=== PATIENT | male | born 1935 | race Caucasian/White ===

== ENCOUNTER 2020-03-16 14:56 | Inpatient (IN) ==
[2020-03-16 16:02] LABS: Basophils # 0.1 K/mcL (0.0-0.2); Basophils % 0.9 %; Eosinophils # 0.4 K/mcL (0.0-0.6); Eosinophils % 3.9 %; Hematocrit 30.2 % (37.5-50.1); Hemoglobin 10.3 g/dL (12.9-16.9); Immature Granulocytes % 0.3 % (0-4); Lymphocytes # 1.4 K/mcL (0.6-4.6); Lymphocytes % 15.3 %; Mean Corpuscular HGB Conc 34.1 g/dL (31.6-35.5); Mean Corpuscular Hemoglobin 31.2 pg (28.0-33.3); Mean Corpuscular Volume 91.5 fL (83.0-100.0); Mean Platelet Volume 10.1 fL (9.4-12.4); Monocytes # 0.7 K/mcL (0.0-1.3); Monocytes % 7.3 %; Neutrophils # 6.4 K/mcL (1.6-8.9); Platelet Count 226 K/mcL (140-400); Red Cell Distribution Width 12.5 % (11.5-14.5); Segmented Neutrophils % 72.3 %; White Blood Count 8.9 K/mcL (4.3-11.1)
[2020-03-16] MEDS: 0.9 % Sodium Chloride 1,000 ML IVC SCH (16:05)
[2020-03-16 16:20] LABS: Calcium 9.2 mg/dL (8.6-10.3); Potassium 5.1 mEq/L (3.5-5.1)
[2020-03-16] MEDS ORDERED: Naloxone 0.4 MG/ML INJ IVP PRN (16:53)
[2020-03-16] MEDS ORDERED: Ondansetron ODT 4 MG TAB.RAPDIS SL PRN (16:53)
[2020-03-16] MEDS: carvediloL 25 MG TABLET PO SCH (18:08)
[2020-03-16] MEDS: cloNIDine HCL 0.1 MG TABLET PO SCH (19:44)
[2020-03-16] MEDS: amLODIPine 5 MG TABLET PO SCH (19:44)
[2020-03-16] MEDS: Mirtazapine 15 MG TABLET PO SCH (19:44)
[2020-03-17 06:51] LABS: Basophils # 0.1 K/mcL (0.0-0.2); Basophils % 0.8 %; Eosinophils # 0.4 K/mcL (0.0-0.6); Eosinophils % 5.4 %; Hematocrit 27.7 % (37.5-50.1); Hemoglobin 9.5 g/dL (12.9-16.9); Immature Granulocytes % 0.1 % (0-4); Lymphocytes # 1.7 K/mcL (0.6-4.6); Lymphocytes % 21.1 %; Mean Corpuscular HGB Conc 34.3 g/dL (31.6-35.5); Mean Corpuscular Hemoglobin 31.3 pg (28.0-33.3); Mean Corpuscular Volume 91.1 fL (83.0-100.0); Mean Platelet Volume 9.7 fL (9.4-12.4); Monocytes # 0.8 K/mcL (0.0-1.3); Monocytes % 9.4 %; Platelet Count 198 K/mcL (140-400); Red Blood Count 3.04 M/mcL (4.19-5.50); Red Cell Distribution Width 12.3 % (11.5-14.5); Segmented Neutrophils % 63.2 %
[2020-03-17] MEDS: 0.9 % Sodium Chloride 1,000 ML IVC SCH ×4 (07:05→22:00)
[2020-03-17 07:11] LABS: Calcium 8.5 mg/dL (8.6-10.3)
[2020-03-17] MEDS: Aspirin Enteric Coated 81 MG Tablet PO SCH (08:45)
[2020-03-17] MEDS: Torsemide 20 MG TABLET PO SCH (08:45)
[2020-03-17] MEDS: cloNIDine HCL 0.1 MG TABLET PO SCH ×3 (08:45→20:01)
[2020-03-17] MEDS: carvediloL 25 MG TABLET PO SCH ×2 (08:46→16:06)
[2020-03-17] MEDS: Multivit/Ca/Min/Fe/FA 1 TAB TABLET PO SCH (08:47)
[2020-03-17] MEDS: amLODIPine 5 MG TABLET PO SCH (20:01)
[2020-03-17] MEDS: Mirtazapine 15 MG TABLET PO SCH (20:01)
[2020-03-18 03:55] LABS: Bilirubin,Urine Negative (Negative); Blood,Urine Trace-intact (Negative); Clarity,Urine Clear (Clear); Color,Urine Yellow (Yellow); Glucose,Urine (UA) Normal (Normal); Ketones,Urine Negative (Negative); Leukocyte Esterase,Urine Negative (Negative); Nitrite,Urine Negative (Negative); PH,Urine 5.5 pH Units (5.0-8.0); Protein,Urine Negative (Neg-Trace); Specific Gravity,Urine 1.015 (1.010-1.025); Urobilinogen,Urine Normal (Normal)
[2020-03-18 04:02] LABS: Squamous Epithelial Cell,Urine Few per lpf (None-Few)
[2020-03-18] MEDS: 0.9 % Sodium Chloride 1,000 ML IVC SCH (05:45)
[2020-03-18 07:43] LABS: Basophils # 0.1 K/mcL (0.0-0.2); Basophils % 0.5 %; Eosinophils # 0.3 K/mcL (0.0-0.6); Eosinophils % 2.9 %; Hematocrit 26.2 % (37.5-50.1); Hemoglobin 8.9 g/dL (12.9-16.9); Immature Granulocytes % 0.3 % (0-4); Lymphocytes # 1.2 K/mcL (0.6-4.6); Lymphocytes % 11.4 %; Mean Corpuscular Hemoglobin 30.9 pg (28.0-33.3); Mean Platelet Volume 10.3 fL (9.4-12.4); Monocytes # 0.7 K/mcL (0.0-1.3); Monocytes % 6.8 %; Platelet Count 184 K/mcL (140-400); Red Blood Count 2.88 M/mcL (4.19-5.50); Red Cell Distribution Width 12.3 % (11.5-14.5); Segmented Neutrophils % 78.1 %; White Blood Count 10.2 K/mcL (4.3-11.1)
[2020-03-18 07:59] LABS: Potassium 3.7 mEq/L (3.5-5.1)
[2020-03-18] MEDS: Multivit/Ca/Min/Fe/FA 1 TAB TABLET PO SCH (08:31)
[2020-03-18] MEDS: cloNIDine HCL 0.1 MG TABLET PO SCH ×3 (08:31→20:12)
[2020-03-18] MEDS: carvediloL 25 MG TABLET PO SCH ×2 (08:32→16:25)
[2020-03-18] MEDS: Torsemide 20 MG TABLET PO SCH (08:33)
[2020-03-18] MEDS: Aspirin Enteric Coated 81 MG Tablet PO SCH (08:33)
[2020-03-18] MEDS ORDERED: 0.9 % Sodium Chloride 1,000 ML IVC SCH (10:45)
[2020-03-18] MEDS ORDERED: haloperidoL 1 MG TABLET PO PRN (16:45)
[2020-03-18] MEDS: Mirtazapine 15 MG TABLET PO SCH (20:11)
[2020-03-18] MEDS: amLODIPine 5 MG TABLET PO SCH (20:12)
[2020-03-19 06:14] LABS: Basophils # 0.1 K/mcL (0.0-0.2); Basophils % 0.6 %; Eosinophils # 0.4 K/mcL (0.0-0.6); Eosinophils % 4.8 %; Hematocrit 26.1 % (37.5-50.1); Immature Granulocytes % 0.3 % (0-4); Lymphocytes # 1.3 K/mcL (0.6-4.6); Lymphocytes % 14.2 %; Mean Corpuscular HGB Conc 34.5 g/dL (31.6-35.5); Mean Corpuscular Hemoglobin 31.5 pg (28.0-33.3); Mean Corpuscular Volume 91.3 fL (83.0-100.0); Mean Platelet Volume 10.2 fL (9.4-12.4); Monocytes # 0.7 K/mcL (0.0-1.3); Monocytes % 7.9 %; Neutrophils # 6.5 K/mcL (1.6-8.9); Platelet Count 180 K/mcL (140-400); Red Blood Count 2.86 M/mcL (4.19-5.50); Red Cell Distribution Width 12.6 % (11.5-14.5); Segmented Neutrophils % 72.2 %
[2020-03-19 06:31] VITALS: BP 170/69
[2020-03-19 06:31] LABS: Calcium 8.5 mg/dL (8.6-10.3); Potassium 3.5 mEq/L (3.5-5.1)
[2020-03-19] MEDS: Torsemide 20 MG TABLET PO SCH (07:46)
[2020-03-19] MEDS: Multivit/Ca/Min/Fe/FA 1 TAB TABLET PO SCH (07:47)
[2020-03-19] MEDS: carvediloL 25 MG TABLET PO SCH (07:47)
[2020-03-19] MEDS: Aspirin Enteric Coated 81 MG Tablet PO SCH (07:47)
[2020-03-19] MEDS: cloNIDine HCL 0.1 MG TABLET PO SCH (07:47)
[2020-03-19] MEDS ORDERED: amLODIPine 5 MG TABLET PO SCH (21:00)
== END 2020-03-19 14:46 | DRG 683 ==
LOC: EMEROOPIK 14:56 → INPPIK 14:56
PROVIDERS: ADMIT Family Medicine; ATTEND Family Medicine

== ENCOUNTER 2020-03-19 12:47 | Inpatient (IN) ==
[2020-03-19] MEDS: cloNIDine HCL 0.1 MG TABLET PO SCH ×2 (16:23→20:06)
[2020-03-19] MEDS: carvediloL 25 MG TABLET PO SCH (16:23)
[2020-03-19] MEDS: amLODIPine 5 MG TABLET PO SCH (20:06)
[2020-03-20] MEDS: carvediloL 25 MG TABLET PO SCH ×2 (07:59→15:29)
[2020-03-20] MEDS: Multivit/Ca/Min/Fe/FA 1 TAB TABLET PO SCH (07:59)
[2020-03-20] MEDS: Mirtazapine 15 MG TABLET PO SCH (07:59)
[2020-03-20] MEDS: Aspirin Enteric Coated 81 MG Tablet PO SCH (07:59)
[2020-03-20] MEDS: cloNIDine HCL 0.1 MG TABLET PO SCH ×3 (07:59→21:22)
[2020-03-20] MEDS ORDERED: Torsemide 20 MG TABLET PO SCH (09:00)
[2020-03-20] MEDS: Nystatin SUSP 5 ML UD.LIQ PO SCH ×2 (15:29→21:22)
[2020-03-20] MEDS: amLODIPine 5 MG TABLET PO SCH (21:22)
[2020-03-21 07:57] LABS: Hematocrit 28.1 % (37.5-50.1); Hemoglobin 9.4 g/dL (12.9-16.9); Mean Corpuscular HGB Conc 33.5 g/dL (31.6-35.5); Mean Corpuscular Hemoglobin 30.5 pg (28.0-33.3); Mean Corpuscular Volume 91.2 fL (83.0-100.0); Mean Platelet Volume 10.1 fL (9.4-12.4); Platelet Count 196 K/mcL (140-400); Red Blood Count 3.08 M/mcL (4.19-5.50); Red Cell Distribution Width 12.8 % (11.5-14.5); White Blood Count 8.3 K/mcL (4.3-11.1)
[2020-03-21 08:10] LABS: Calcium 8.5 mg/dL (8.6-10.3); Potassium 3.3 mEq/L (3.5-5.1)
[2020-03-21] MEDS: carvediloL 25 MG TABLET PO SCH ×2 (10:03→17:44)
[2020-03-21] MEDS: cloNIDine HCL 0.1 MG TABLET PO SCH ×3 (10:03→21:00)
[2020-03-21] MEDS: Aspirin Enteric Coated 81 MG Tablet PO SCH (10:03)
[2020-03-21] MEDS: Nystatin SUSP 5 ML UD.LIQ PO SCH ×4 (10:05→21:00)
[2020-03-21] MEDS: Multivit/Ca/Min/Fe/FA 1 TAB TABLET PO SCH (10:05)
[2020-03-21] MEDS: Mirtazapine 15 MG TABLET PO SCH (10:06)
[2020-03-21] MEDS ORDERED: Ondansetron ODT 4 MG TAB.RAPDIS SL PRN (11:18)
[2020-03-21] MEDS: amLODIPine 5 MG TABLET PO SCH (21:00)
[2020-03-22] MEDS: cloNIDine HCL 0.1 MG TABLET PO SCH ×3 (08:36→20:19)
[2020-03-22] MEDS: Multivit/Ca/Min/Fe/FA 1 TAB TABLET PO SCH (08:37)
[2020-03-22] MEDS: Aspirin Enteric Coated 81 MG Tablet PO SCH (08:37)
[2020-03-22] MEDS: Nystatin SUSP 5 ML UD.LIQ PO SCH ×4 (08:37→20:19)
[2020-03-22] MEDS: carvediloL 25 MG TABLET PO SCH ×2 (08:37→17:57)
[2020-03-22] MEDS: Mirtazapine 15 MG TABLET PO SCH (08:38)
[2020-03-22] MEDS: amLODIPine 5 MG TABLET PO SCH (20:19)
[2020-03-22] MEDS: Tobramycin Opth SOLN 5 ML BOTTLE BOTH EYES SCH (22:52)
[2020-03-23] MEDS: Mirtazapine 15 MG TABLET PO SCH (09:12)
[2020-03-23] MEDS: Tobramycin Opth SOLN 5 ML BOTTLE BOTH EYES SCH ×4 (09:12→20:03)
[2020-03-23] MEDS: Aspirin Enteric Coated 81 MG Tablet PO SCH (09:12)
[2020-03-23] MEDS: carvediloL 25 MG TABLET PO SCH ×2 (09:12→16:00)
[2020-03-23] MEDS: cloNIDine HCL 0.1 MG TABLET PO SCH ×3 (09:12→20:03)
[2020-03-23] MEDS: Multivit/Ca/Min/Fe/FA 1 TAB TABLET PO SCH (09:12)
[2020-03-23] MEDS: Nystatin SUSP 5 ML UD.LIQ PO SCH ×4 (09:37→20:03)
[2020-03-23] MEDS: amLODIPine 5 MG TABLET PO SCH (20:03)
[2020-03-24] MEDS: cloNIDine HCL 0.1 MG TABLET PO SCH ×3 (10:46→20:04)
[2020-03-24] MEDS: carvediloL 25 MG TABLET PO SCH ×2 (10:46→17:57)
[2020-03-24] MEDS: Aspirin Enteric Coated 81 MG Tablet PO SCH (10:46)
[2020-03-24] MEDS: Mirtazapine 15 MG TABLET PO SCH (10:47)
[2020-03-24] MEDS: Nystatin SUSP 5 ML UD.LIQ PO SCH ×4 (10:47→20:04)
[2020-03-24] MEDS: Multivit/Ca/Min/Fe/FA 1 TAB TABLET PO SCH (10:48)
[2020-03-24] MEDS: Tobramycin Opth SOLN 5 ML BOTTLE BOTH EYES SCH ×4 (11:05→20:04)
[2020-03-24] MEDS: amLODIPine 5 MG TABLET PO SCH (20:03)
[2020-03-25 06:26] LABS: Hematocrit 28.2 % (37.5-50.1); Hemoglobin 9.5 g/dL (12.9-16.9); Mean Corpuscular HGB Conc 33.7 g/dL (31.6-35.5); Mean Corpuscular Hemoglobin 30.7 pg (28.0-33.3); Mean Corpuscular Volume 91.3 fL (83.0-100.0); Platelet Count 237 K/mcL (140-400); Red Blood Count 3.09 M/mcL (4.19-5.50); Red Cell Distribution Width 12.6 % (11.5-14.5); White Blood Count 7.9 K/mcL (4.3-11.1)
[2020-03-25 06:46] LABS: Calcium 8.7 mg/dL (8.6-10.3); Potassium 3.7 mEq/L (3.5-5.1)
[2020-03-25] MEDS: Multivit/Ca/Min/Fe/FA 1 TAB TABLET PO SCH (08:23)
[2020-03-25] MEDS: Aspirin Enteric Coated 81 MG Tablet PO SCH (08:23)
[2020-03-25] MEDS: Mirtazapine 15 MG TABLET PO SCH (08:23)
[2020-03-25] MEDS: carvediloL 25 MG TABLET PO SCH ×2 (08:23→17:11)
[2020-03-25] MEDS: Nystatin SUSP 5 ML UD.LIQ PO SCH ×3 (08:24→17:11)
[2020-03-25] MEDS: cloNIDine HCL 0.1 MG TABLET PO SCH ×3 (08:25→20:45)
[2020-03-25] MEDS: Tobramycin Opth SOLN 5 ML BOTTLE BOTH EYES SCH ×4 (08:30→20:45)
[2020-03-25] MEDS: amLODIPine 5 MG TABLET PO SCH (20:45)
[2020-03-26] MEDS: cloNIDine HCL 0.1 MG TABLET PO SCH ×3 (08:04→19:53)
[2020-03-26] MEDS: carvediloL 25 MG TABLET PO SCH ×2 (08:04→16:45)
[2020-03-26] MEDS: Mirtazapine 15 MG TABLET PO SCH (08:04)
[2020-03-26] MEDS: Aspirin Enteric Coated 81 MG Tablet PO SCH (08:04)
[2020-03-26] MEDS: Multivit/Ca/Min/Fe/FA 1 TAB TABLET PO SCH (08:04)
[2020-03-26] MEDS: Tobramycin Opth SOLN 5 ML BOTTLE BOTH EYES SCH ×4 (08:05→19:53)
[2020-03-26] MEDS: amLODIPine 5 MG TABLET PO SCH (19:53)
[2020-03-27 06:52] VITALS: BP 138/64
[2020-03-27] MEDS: cloNIDine HCL 0.1 MG TABLET PO SCH (08:58)
[2020-03-27] MEDS: Aspirin Enteric Coated 81 MG Tablet PO SCH (08:58)
[2020-03-27] MEDS: Multivit/Ca/Min/Fe/FA 1 TAB TABLET PO SCH (08:58)
[2020-03-27] MEDS: Mirtazapine 15 MG TABLET PO SCH (08:58)
[2020-03-27] MEDS: carvediloL 25 MG TABLET PO SCH (08:58)
[2020-03-27] MEDS: Tobramycin Opth SOLN 5 ML BOTTLE BOTH EYES SCH (09:02)
== END 2020-03-27 11:00 | disposition home health service (06) | DRG 683 ==
LOC: INPPIK 14:55
PROVIDERS: ADMIT Family Medicine; ATTEND Family Medicine

== ENCOUNTER 2020-05-06 18:07 | Observation (INO) ==
[2020-05-06 18:56] LABS: Basophils # 0.1 K/mcL (0.0-0.2); Basophils % 0.8 %; Eosinophils # 0.5 K/mcL (0.0-0.6); Eosinophils % 6.2 %; Hematocrit 26.2 % (37.5-50.1); Immature Granulocytes % 0.2 % (0-4); Lymphocytes # 1.9 K/mcL (0.6-4.6); Lymphocytes % 22.5 %; Mean Corpuscular HGB Conc 34.4 g/dL (31.6-35.5); Mean Corpuscular Hemoglobin 31.1 pg (28.0-33.3); Mean Corpuscular Volume 90.7 fL (83.0-100.0); Mean Platelet Volume 10.7 fL (9.4-12.4); Monocytes # 0.8 K/mcL (0.0-1.3); Neutrophils # 5.2 K/mcL (1.6-8.9); Platelet Count 223 K/mcL (140-400); Red Blood Count 2.89 M/mcL (4.19-5.50); Red Cell Distribution Width 13.3 % (11.5-14.5); Segmented Neutrophils % 61.3 %; White Blood Count 8.4 K/mcL (4.3-11.1)
[2020-05-06 18:58] LABS: INR 1.2; Prothrombin Time 13.3 Seconds (9.4-12.1)
[2020-05-06 19:00] LABS: Activated Partial Thrombo Time 35.8 Seconds (26.0-36.0)
[2020-05-06 19:10] LABS: BUN/Creatinine Ratio 11 (6-26); Blood Urea Nitrogen 24 mg/dL (8-23); Calcium 8.6 mg/dL (8.6-10.3); Carbon Dioxide 26 mEq/L (23-29); Chloride 104 mEq/L (98-107); Glucose 102 mg/dL (70-105); Osmolality,Calculated 292 (280-300); Potassium 3.8 mEq/L (3.5-5.1); Sodium 139 mEq/L (136-145); Troponin I < 0.03 ng/mL (< 0.04); eGFR For African Americans 37 (> 60); eGFR For Non-African Americans 30 (> 60)
[2020-05-06] MEDS ORDERED: *HR* Labetalol 20 MG/4 ML SYRINGE IVP PRN (20:43)
[2020-05-06] MEDS ORDERED: amLODIPine 5 MG TABLET PO SCH (21:00)
[2020-05-06] MEDS: carvediloL 25 MG TABLET PO SCH (22:14)
[2020-05-07] MEDS: hydrALAZINE 10 MG TABLET PO SCH ×3 (00:58→11:47)
[2020-05-07] MEDS ORDERED: Acetaminophen 325 MG TABLET PO PRN (02:56)
[2020-05-07 06:35] LABS: Basophils # 0.1 K/mcL (0.0-0.2); Basophils % 0.6 %; Eosinophils # 0.4 K/mcL (0.0-0.6); Eosinophils % 4.7 %; Hematocrit 24.9 % (37.5-50.1); Hemoglobin 8.4 g/dL (12.9-16.9); Immature Granulocytes % 0.2 % (0-4); Lymphocytes # 1.9 K/mcL (0.6-4.6); Lymphocytes % 21.3 %; Mean Corpuscular HGB Conc 33.7 g/dL (31.6-35.5); Mean Corpuscular Hemoglobin 30.7 pg (28.0-33.3); Mean Corpuscular Volume 90.9 fL (83.0-100.0); Mean Platelet Volume 9.8 fL (9.4-12.4); Monocytes # 0.7 K/mcL (0.0-1.3); Monocytes % 7.6 %; Neutrophils # 5.8 K/mcL (1.6-8.9); Platelet Count 197 K/mcL (140-400); Red Blood Count 2.74 M/mcL (4.19-5.50); Red Cell Distribution Width 13.3 % (11.5-14.5); Segmented Neutrophils % 65.6 %; White Blood Count 8.8 K/mcL (4.3-11.1)
[2020-05-07 06:56] LABS: Calcium 8.2 mg/dL (8.6-10.3); Potassium 3.9 mEq/L (3.5-5.1)
[2020-05-07] MEDS: carvediloL 25 MG TABLET PO SCH (08:20)
[2020-05-07] MEDS ORDERED: Multivit/Ca/Min/Fe/FA 1 TAB TABLET PO SCH (09:00)
[2020-05-07] MEDS ORDERED: Aspirin Enteric Coated 81 MG Tablet PO SCH (09:00)
[2020-05-07 10:55] VITALS: BP 149/62
[2020-05-07] MEDS ORDERED: amLODIPine 5 MG TABLET PO SCH (11:46)
== END 2020-05-07 14:35 | disposition home or self-care (01) ==
LOC: INPPIK 18:07 → EMEROOPIK 18:07 → INPPIK 21:28
PROVIDERS: ADMIT Family Medicine; ATTEND Family Medicine

== ENCOUNTER 2020-12-03 23:30 | Inpatient (IN) ==
[2020-12-03] MEDS ORDERED: Ondansetron 4 MG/2 ML VIAL IVP ONE (23:40)
[2020-12-03] MEDS ORDERED: 0.9 % Sodium Chloride 1,000 ML IV ONE (23:40)
[2020-12-04 00:02] LABS: Basophils # 0.1 K/mcL (0.0-0.2); Basophils % 0.4 %; Eosinophils # 0.5 K/mcL (0.0-0.6); Eosinophils % 2.7 %; Hematocrit 32.6 % (37.5-50.1); Hemoglobin 10.9 g/dL (12.9-16.9); Immature Granulocytes % 0.4 % (0-4); Lymphocytes # 1.1 K/mcL (0.6-4.6); Lymphocytes % 6.4 %; Mean Corpuscular HGB Conc 33.4 g/dL (31.6-35.5); Mean Corpuscular Hemoglobin 30.4 pg (28.0-33.3); Mean Corpuscular Volume 90.8 fL (83.0-100.0); Mean Platelet Volume 9.8 fL (9.4-12.4); Neutrophils # 13.8 K/mcL (1.6-8.9); Platelet Count 271 K/mcL (140-400); Red Blood Count 3.59 M/mcL (4.19-5.50); Red Cell Distribution Width 13.2 % (11.5-14.5); Segmented Neutrophils % 82.1 %; White Blood Count 16.8 K/mcL (4.3-11.1)
[2020-12-04 00:04] LABS: Monocytes # 1.3 K/mcL (0.0-1.3)
[2020-12-04 00:09] LABS: INR 1.1; Prothrombin Time 12.5 Seconds (9.4-12.1)
[2020-12-04 00:20] LABS: Albumin 4.2 g/dL (3.5-5.7); Albumin/Globulin Ratio 1.4 (1.1-2.2); Bilirubin,Total 0.3 mg/dL (0.3-1.0); Calcium 8.9 mg/dL (8.6-10.3); Globulin 2.9 g/dL (2.4-3.5); Potassium 3.9 mEq/L (3.5-5.1); Total Protein 7.1 g/dL (6.4-8.9)
[2020-12-04] MEDS ORDERED: cefTRIAXone 1,000 MG in 0.9 % Sodium Chloride Mini Bag 100 ML IVPB ONE (01:09)
[2020-12-04] MEDS ORDERED: Naloxone 0.4 MG/ML INJ IVP PRN (02:21)
[2020-12-04] MEDS ORDERED: 0.9 % Sodium Chloride 1,000 ML IVC SCH (02:21)
[2020-12-04] MEDS ORDERED: Ondansetron 4 MG/2 ML VIAL IVP PRN (02:21)
[2020-12-04 05:17] LABS: Bilirubin,Urine Negative (Negative); Blood,Urine Negative (Negative); Clarity,Urine Clear (Clear); Color,Urine Yellow (Yellow); Glucose,Urine (UA) Normal (Normal); Ketones,Urine Negative (Negative); Leukocyte Esterase,Urine Negative (Negative); Nitrite,Urine Negative (Negative); Protein,Urine 100 mg/dL (Neg-Trace); Urobilinogen,Urine Normal (Normal)
[2020-12-04] MEDS: carvediloL 25 MG TABLET PO SCH ×2 (07:49→17:08)
[2020-12-04] MEDS: amLODIPine 5 MG TABLET PO SCH ×2 (07:49→20:35)
[2020-12-04] MEDS: Multivit/Ca/Min/Fe/FA 1 TAB TABLET PO SCH (07:49)
[2020-12-04] MEDS: Aspirin Enteric Coated 81 MG Tablet PO SCH (07:49)
[2020-12-04] MEDS: Gabapentin 100 MG CAPSULE PO SCH ×3 (07:49→20:35)
[2020-12-04] MEDS: QUEtiapine Fumarate 25 MG TABLET PO SCH (20:35)
[2020-12-04] MEDS: *HR* HYDROcodone/Acet 7.5/325 mg TABLET PO PRN (21:49)
[2020-12-05 06:52] LABS: Basophils % 0.5 %; Eosinophils # 0.4 K/mcL (0.0-0.6); Hematocrit 26.7 % (37.5-50.1); Hemoglobin 8.6 g/dL (12.9-16.9); Immature Granulocytes % 0.2 % (0-4); Lymphocytes % 21.1 %; Mean Corpuscular HGB Conc 32.2 g/dL (31.6-35.5); Mean Corpuscular Hemoglobin 30.3 pg (28.0-33.3); Mean Platelet Volume 10.2 fL (9.4-12.4); Monocytes # 0.8 K/mcL (0.0-1.3); Monocytes % 9.1 %; Neutrophils # 5.3 K/mcL (1.6-8.9); Platelet Count 216 K/mcL (140-400); Red Blood Count 2.84 M/mcL (4.19-5.50); Red Cell Distribution Width 13.8 % (11.5-14.5); Segmented Neutrophils % 64.1 %; White Blood Count 8.3 K/mcL (4.3-11.1)
[2020-12-05 07:10] LABS: Lymphocytes # 1.8 K/mcL (0.6-4.6)
[2020-12-05 07:16] LABS: Calcium 8.2 mg/dL (8.6-10.3); Potassium 4.4 mEq/L (3.5-5.1)
[2020-12-05] MEDS: Gabapentin 100 MG CAPSULE PO SCH ×3 (08:32→20:31)
[2020-12-05] MEDS: Aspirin Enteric Coated 81 MG Tablet PO SCH (08:32)
[2020-12-05] MEDS: carvediloL 25 MG TABLET PO SCH ×2 (08:32→17:11)
[2020-12-05] MEDS: amLODIPine 5 MG TABLET PO SCH ×2 (08:33→20:31)
[2020-12-05] MEDS: *HR* HYDROcodone/Acet 7.5/325 mg TABLET PO PRN ×2 (08:33→20:30)
[2020-12-05] MEDS: Multivit/Ca/Min/Fe/FA 1 TAB TABLET PO SCH (08:33)
[2020-12-05] MEDS: QUEtiapine Fumarate 25 MG TABLET PO SCH (20:31)
[2020-12-06 07:09] LABS: Hematocrit 29.2 % (37.5-50.1); Hemoglobin 9.8 g/dL (12.9-16.9); Mean Corpuscular HGB Conc 33.6 g/dL (31.6-35.5); Mean Corpuscular Volume 92.4 fL (83.0-100.0); Platelet Count 215 K/mcL (140-400); Red Blood Count 3.16 M/mcL (4.19-5.50); Red Cell Distribution Width 13.4 % (11.5-14.5); White Blood Count 8.3 K/mcL (4.3-11.1)
[2020-12-06 07:21] LABS: Calcium 8.6 mg/dL (8.6-10.3); Potassium 4.1 mEq/L (3.5-5.1)
[2020-12-06] MEDS: Aspirin Enteric Coated 81 MG Tablet PO SCH (08:37)
[2020-12-06] MEDS: Gabapentin 100 MG CAPSULE PO SCH ×3 (08:37→19:34)
[2020-12-06] MEDS: amLODIPine 5 MG TABLET PO SCH ×2 (08:37→19:34)
[2020-12-06] MEDS: Multivit/Ca/Min/Fe/FA 1 TAB TABLET PO SCH (08:38)
[2020-12-06] MEDS: carvediloL 25 MG TABLET PO SCH ×2 (08:38→17:12)
[2020-12-06] MEDS: QUEtiapine Fumarate 25 MG TABLET PO SCH (19:34)
[2020-12-07 06:58] VITALS: BP 156/70
[2020-12-07] MEDS: Multivit/Ca/Min/Fe/FA 1 TAB TABLET PO SCH (07:59)
[2020-12-07] MEDS: amLODIPine 5 MG TABLET PO SCH (07:59)
[2020-12-07] MEDS: Aspirin Enteric Coated 81 MG Tablet PO SCH (07:59)
[2020-12-07] MEDS: Gabapentin 100 MG CAPSULE PO SCH (07:59)
[2020-12-07] MEDS: carvediloL 25 MG TABLET PO SCH (07:59)
== END 2020-12-07 12:45 | disposition home health service (06) | DRG 552 ==
LOC: INPPIK 23:30 → EMEROOPIK 23:30 → INPPIK 12-04 02:08
PROVIDERS: ADMIT Family Medicine; ATTEND Family Medicine

== ENCOUNTER 2021-03-10 10:06 | Observation (INO) ==
[2021-03-10] MEDS ORDERED: 0.9 % Sodium Chloride 1,000 ML IVC ONE (10:34)
[2021-03-10 11:11] LABS: Basophils # 0.1 K/mcL (0.0-0.2); Basophils % 0.5 %; Eosinophils # 0.3 K/mcL (0.0-0.6); Eosinophils % 2.3 %; Hematocrit 31.1 % (37.5-50.1); Hemoglobin 10.1 g/dL (12.9-16.9); Immature Granulocytes % 0.5 % (0-4); Lymphocytes # 1.4 K/mcL (0.6-4.6); Lymphocytes % 11.1 %; Mean Corpuscular HGB Conc 32.5 g/dL (31.6-35.5); Mean Corpuscular Volume 95.4 fL (83.0-100.0); Mean Platelet Volume 10.8 fL (9.4-12.4); Monocytes % 5.8 %; Neutrophils # 10.3 K/mcL (1.6-8.9); Platelet Count 222 K/mcL (140-400); Red Blood Count 3.26 M/mcL (4.19-5.50); Red Cell Distribution Width 13.2 % (11.5-14.5); Segmented Neutrophils % 79.8 %; White Blood Count 12.9 K/mcL (4.3-11.1)
[2021-03-10 11:21] LABS: Monocytes # 0.8 K/mcL (0.0-1.3)
[2021-03-10 11:32] LABS: Alanine Aminotransferase 10 Units/L (7-52); Albumin 3.5 g/dL (3.5-5.7); Albumin/Globulin Ratio 1.5 (1.1-2.2); Alkaline Phosphatase 63 Units/L (34-104); Aspartate Amino Transferase 14 Units/L (13-39); BUN/Creatinine Ratio 18 (6-26); Bilirubin,Total 0.7 mg/dL (0.3-1.0); Blood Urea Nitrogen 40 mg/dL (8-23); Calcium 8.8 mg/dL (8.6-10.3); Carbon Dioxide 22 mEq/L (23-29); Chloride 110 mEq/L (98-107); Globulin 2.4 g/dL (2.4-3.5); Glucose 90 mg/dL (70-105); Osmolality,Calculated 303 (280-300); Phosphorous 3.5 mg/dL (2.7-4.5); Potassium 4.5 mEq/L (3.5-5.1); Sodium 142 mEq/L (136-145); Total Protein 5.9 g/dL (6.4-8.9); Troponin I < 0.03 ng/mL (< 0.04); eGFR For African Americans 35 (> 60); eGFR For Non-African Americans 29 (> 60)
[2021-03-10 11:50] LABS: Bilirubin,Urine Negative (Negative); Blood,Urine Negative (Negative); Clarity,Urine Clear (Clear); Color,Urine Yellow (Yellow); Glucose,Urine (UA) Normal (Normal); Ketones,Urine 15 mg/dL (Negative); Leukocyte Esterase,Urine Negative (Negative); Nitrite,Urine Negative (Negative); Protein,Urine 100 mg/dL (Neg-Trace); Specific Gravity,Urine 1.025 (1.010-1.025); Urobilinogen,Urine Normal (Normal)
[2021-03-10 11:58] LABS: Hyaline Casts,Urine Few per lpf (None Seen); Mucus,Urine Few per lpf (None-Few)
[2021-03-10 11:59] LABS: RBC,Urine 0-3 per hpf (0-3); Squamous Epithelial Cell,Urine Few per hpf (None-Few); WBC,Urine 0-3 per hpf (0-3)
[2021-03-10 12:00] LABS: Bacteria,Urine Few per hpf (None-Few)
[2021-03-10] MEDS ORDERED: Naloxone 0.4 MG/ML INJ IVP PRN (13:38)
[2021-03-10] MEDS ORDERED: Ondansetron 4 MG/2 ML VIAL IVP PRN (13:38)
[2021-03-10] MEDS ORDERED: Melatonin 3 MG TABLET PO PRN (13:38)
[2021-03-10] MEDS ORDERED: Ringers Solution, Lactated 1,000 ML IVC SCH (13:45)
[2021-03-10] MEDS ORDERED: Haloperidol Lactate 5 MG/ML VIAL IM ONE (15:30)
[2021-03-10] MEDS: Acetaminophen 325 MG TABLET PO PRN ×2 (15:37→22:58)
[2021-03-10] MEDS: Gabapentin 400 MG CAPSULE PO SCH ×2 (15:41→22:54)
[2021-03-10] MEDS ORDERED: amLODIPine 5 MG TABLET PO SCH (21:00)
[2021-03-10] MEDS ORDERED: QUEtiapine Fumarate 25 MG TABLET PO SCH ×2 (21:00)
[2021-03-10] MEDS ORDERED: carvediloL 25 MG TABLET PO SCH (21:00)
[2021-03-10 22:22] VITALS: BP 171/71
[2021-03-11] MEDS ORDERED: Aspirin Enteric Coated 81 MG Tablet PO SCH (09:00)
[2021-03-11] MEDS ORDERED: Multivit/Ca/Min/Fe/FA 1 TAB TABLET PO SCH (09:00)
[2021-03-11] MEDS ORDERED: QUEtiapine Fumarate 25 MG TABLET PO SCH (09:00)
== END 2021-03-10 23:15 | disposition short-term general hospital (02) ==
LOC: EMEROOPIK 10:06 → INPPIK 10:06
PROVIDERS: ADMIT Family Medicine; ATTEND Family Medicine